=== PATIENT | female | born 1995 | race Caucasian/White ===

== ENCOUNTER 2022-12-06 18:24 | Emergency (ER) | payer SELFPAY ==
[~2022-12-06] VITALS: Ht 152.4 cm
[2022-12-06 19:48] LABS: BILIRUBIN Negative (Negative); BLOOD 3+ (Negative); CLARITY Turbid (Clear); GLUCOSE Negative (Negative); KETONE Negative (Negative); LEUKO ESTERASE 1+ (Negative); NITRITE Negative (Negative); SPECIFIC GRAVITY 1.025 (1.001-1.030)
[2022-12-06 20:27] LABS: COLOR Orange (Yellow); RBC 41-50 rbc/hpf (0-2)
[2022-12-06] MEDS ORDERED: HYDROCODONE-AC1 EAC1 PO (22:05)
[2022-12-06] MEDS ORDERED: FLOMAX0.4 MG PO (22:05)
[2022-12-06] MEDS ORDERED: ONDANSETRON4 MG SL (22:05)
== END 2022-12-06 22:27 | disposition home or self-care (01) ==
LOC: ED 18:24 → EDBD 18:33 → ED 18:33
PROVIDERS: Internal Medicine
DX: N13.2 Hydronephrosis with renal and ureteral calculous obstruction (principal)